=== PATIENT | male | born 1995 | race Caucasian/White ===

== ENCOUNTER 2022-06-25 20:26 | Emergency (ER) | payer BC ==
[2022-06-25] MEDS: Take Home: Cefuroxime 250 MG Tab, 2 Tab Pack PO ONE ×2 (21:39)
[2022-06-25] MEDS: cefTRIAXone 1 GM Vial IVPUSH ONE (21:39)
== END 2022-06-25 21:58 | disposition home or self-care (01) ==
LOC: CC.ED 20:26
DX: N39.0 Urinary tract infection, site not specified (principal); N30.01 Acute cystitis with hematuria; Z88.0 Allergy status to penicillin; Z72.0 Tobacco use
CPT/HCPCS: 36415; 80053; 81001; 82150; 83690; 85025; 87086; 87088; 87186; 96374; 99284; A9270; J0696